=== PATIENT | male | born 1955 | race Caucasian/White ===

== ENCOUNTER 2022-10-14 23:23 | Emergency (ER) | payer OTHER, SELFPAY ==
[2022-10-14 23:25] VITALS: BP 173/91; PULSE 78; RESP 16; TEMP 36.6; O2SAT 98; BMI 29.2
[2022-10-14 23:32] VITALS: BP 171/80
[2022-10-15] MEDS: Lidocaine/Epi/Tetracaine 50 ML 1 APPLIC TOPICAL (00:04)
[2022-10-15] MEDS: Gelatin Sponge Absorbable 50cm (1) 1 EACH TOPICAL (00:05)
--- NOTE | 2022-10-15 00:33 | EDS_ITS ---
HPI History of Present Illness Chief Complaint: Laceration Informant: patient Onset/Context/Timing Onset: Today Narrative Narrative: Patient presents around 10 hours after an injury to his left ring finger, he was trying to cut something open with a box knife and accidentally cut a chunk of skin off of it. He was seen at urgent care, they put a dressing on it with some pressure but when he took the pressure dressing off it continued to bleed. He is on Brilinta. He has a history of thrombocytopenia as last time his platelets were checked it was around 70,000. He denies any other injuries. His last tetanus was 1 year ago. [facility] Medical History Aftercare following bilateral knee joint replacement surgery Coronary stent patent CVA (cerebral vascular accident) FH: CABG (coronary artery bypass surgery) Allergy/AdvReac Type Severity Reaction Status Date / Time iodine Allergy Swelling Verified 10/14/22 23:28 adhesive AdvReac Other Verified 10/14/22 23:28 verapamil AdvReac Other Verified 10/14/22 23:28 Surgical History (Updated 10/14/22 @ 23:30 by Taryn Agustin) History of shoulder surgery Social History Smoking Status: Never smoker ROS ROS ED Constitutional Constitutional ED: Denies chills or fever(s) Musculoskeletal Musculoskeletal: Reports extremity pain; Denies neck pain Integumentary Reports wounds; Denies Abrasions or rash Neurologic Neurologic: Denies paresthesias or weakness EXAM Physical Exam Const Vital Signs: 10/14/22 23:25 10/14/22 23:32 Temperature 97.9 F Temperature Source Temporal Pulse Rate 78 Respiratory Rate 16 Blood Pressure 173/91 H 171/80 H Blood Pressure Mean 118 110 Pulse Ox 98 Oxygen Delivery Method Room Air Positive well nourished and well developed General Appearance ED: well developed and NAD Neck full ROM and supple Back/Spine normal ROM and normal to inspection Extremity Extremity Narrative: Distal phalanx and part of the middle phalanx of the left ring finger epidermal avulsion with using dermis exposed, no other subcutaneous tissue noted such as bone, tendon, nerve but there is a small arteriolar bleed from the middle of this wound. Total area of epidermal avulsion is approximately 4 centimeters square. All tendon function intact. Neurovascular intact. No nail or nailbed injury. Neuro oriented x3, no focal motor deficits and no sensory deficits noted Sensorium / Orientation: alert Psych mental status grossly normal and thought process normal Skin Skin Narrative: Epidermal avulsion left ring finger see above. Rashes: no rashes MDM MDM MDM Narrative Medical decision making narrative: We placed a small amount of LET along with Gelfoam against the wound after cleansing it, in addition to then a gauze dressing, it was not wrapped tight, but it was taped snugly, there was good hemostasis. 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 Discharge Plan Triage Chief Complaint: Laceration ED Provider: Wilmer Balderas Dx/Rx/DC Orders Clinical Impression: Avulsion of skin of finger without complication, Bleeding from finger Instructions: First Aid: Bleeding, ED Skin Avulsion Stand Alone Forms: ED Work / School Excuse Primary Care Provider: Care Physician,No Primary Referrals: Care Physician,No Primary [Primary Care Provider] - Doctor,Your [Non-Staff] - 3-5 Days if not improving Activity Restrictions/Additional Instructions: Keep dressing intact for least 2 days, then change as needed. We can use the foam if there is any left against the skin along with some antibiotic ointment. Disposition Disposition: Home, Self Care
== END 2022-10-15 01:31 | disposition home or self-care (01) ==
PROVIDERS: Emergency Provider Emergency Medicine; Visit Provider Emergency Medicine
DX: S61.215A Laceration without foreign body of left ring finger without damage to nail, initial encounter (principal); W26.0XXA Contact with knife, initial encounter
CPT/HCPCS: 99282

== ENCOUNTER → 2023-06-16 | Outpatient (CLI) | payer OTHER, SELFPAY ==
--- NOTE | 2023-06-16 12:35 | RAD_ITS ---
EXAM: XR RIGHT KNEE, 3 VIEWS CLINICAL INDICATION: arthritis, TECHNIQUE: Three views of the right knee. COMPARISON: No relevant prior studies available. FINDINGS: BONES/JOINTS: There is a medial hemiarthroplasty hardware in good position. No acute fracture. No subluxation. Normal alignment. No sclerotic or destructive changes observed. SOFT TISSUES: Unremarkable. No soft tissue swelling or gas. No radiopaque foreign body. RAD/Knee 3 Views IMPRESSION: Medial arthroplasty in good position. There are no acute osseous abnormalities. Electronically Signed: Zhou Hodge MD at 0:06 EDT ,
--- NOTE | 2023-06-16 12:35 | RAD_ITS ---
EXAM: XR LEFT KNEE, 3 VIEWS CLINICAL INDICATION: arthritis, TECHNIQUE: Three views of the left knee. COMPARISON: No relevant prior studies available. FINDINGS: BONES/JOINTS: Hemiarthroplasty involving the medial compartment. Mild lateral compartment narrowing. Sushant-Stieda type calcification adjacent to the medial femoral condyle may be due to old medial collateral ligament injury. Patellofemoral joint arthrosis. No acute fracture. No subluxation. Normal alignment. No sclerotic or destructive changes observed. SOFT TISSUES: Unremarkable. No soft tissue swelling or gas. No radiopaque foreign body. RAD/Knee 3 Views IMPRESSION: 1. Hemiarthroplasty involving the medial compartment. Mild lateral compartment narrowing. 2. Sushant-Stieda type calcification adjacent to the medial femoral condyle may be due to old medial collateral ligament injury. 3. Patellofemoral joint arthrosis. Electronically Signed: Aren Donovan MD at 0:23 EDT ,
--- NOTE | 2023-06-16 12:35 | RAD_ITS ---
EXAM: XR LEFT SHOULDER COMPLETE, 2 OR MORE VIEWS CLINICAL INDICATION: arthritis, TECHNIQUE: 4 views.. COMPARISON: 4 views of the right shoulder FINDINGS: BONES/JOINTS: Postoperative change with a small orthopedic structure projecting deep in the central left humeral head-neck junction. Mild hypertrophic changes at the superior glenoid. The glenohumeral joint and rotator cuff interval appear well maintained. Cortical thickening of the left humeral shaft appears likely chronic and benign. No acute fracture. No subluxation. Normal alignment. No sclerotic or destructive changes observed. SOFT TISSUES: Unremarkable. No soft tissue swelling or gas. No radiopaque foreign body. RAD/Shoulder min 2 Views IMPRESSION: No acute findings. Postoperative change. Electronically Signed: Tuyet Brown MD at 8:23 EDT ,
--- NOTE | 2023-06-16 12:35 | RAD_ITS ---
EXAM: XR RIGHT SHOULDER COMPLETE, 2 OR MORE VIEWS CLINICAL INDICATION: arthritis, TECHNIQUE: 4 views. COMPARISON: 4 views of the left shoulder the same day. FINDINGS: BONES/JOINTS: Right humeral head prosthesis. Partially included are median sternotomy wires. No superior subluxation of the right humeral head to suggest chronic rotator cuff tear. Unremarkable right ribs and lung. No acute fracture. Preservation of the joint space. No sclerotic or destructive changes observed. SOFT TISSUES: Unremarkable. No soft tissue swelling or gas. No radiopaque foreign body. RAD/Shoulder min 2 Views IMPRESSION: Right humeral head prosthesis, well positioned. Mild cortical thickening of right humeral shaft may be due to old healed fracture. No acute findings. Electronically Signed: Tuyet Brown MD at 8:21 EDT ,
== END | disposition home or self-care (01) ==
LOC: RAD 12:29
PROVIDERS: PCP Chiropractor; Referring Provider Chiropractor; Visit Provider Chiropractor
DX: M13.80 Other specified arthritis, unspecified site (principal)
CPT/HCPCS: 73030; 73562

== ENCOUNTER → 2023-12-08 | Outpatient (CLI) | payer OTHER, SELFPAY ==
--- NOTE | 2023-12-08 09:04 | ECHOCS_ITS ---
Reason For Study: CAD/ASHD Procedure This was a 2D Doppler, Color Flow transthoracic echocardiogram. The study was technically difficult. Exam performed in department. Left Ventricle Normal LV size. Moderate concentric left ventricular hypertrophy. Left ventricular systolic function is normal. The left ventricular ejection fraction is 60 %. Stage 1 diastolic dysfunction. No regional wall motion abnormalities noted. Right Ventricle Normal RV size. Normal systolic function. Atria Normal left atrium. Normal right atrium. Bubble contrast study negative for right to left interatrial shunt. Mitral Valve Moderate focal mitral valve calcification of the anterior leaflet. Tricuspid Valve Normal tricuspid valve. Mild tricuspid valve insufficiency. Pulmonary artery systolic pressure is 33 mmHg. Aortic Valve Normal aortic valve. Pulmonic Valve Normal pulmonic valve. Great Vessels Normal aortic root. The pulmonary artery is normal size. Normal inferior vena cava. Pericardium/Pleural No pericardial effusion. Medication 22 gauge I.V. with prn adaptor inserted into right arm. Diluted definity 3ml given slow IV push to enhance endocardial definition. Performed a rapid injection of agitated mix of 9 cc saline and 1cc air to assess for atrial septal defect. MMode/2D Measurements & Calculations LVIDd: 3.8 cm IVSd: 1.4 cm Ao root diam: 3.3 cm LVIDs: 2.7 cm LVPWd: 1.3 cm RVDd: 3.1 cm FS: 29.0 % LAV(MOD-bp): 20.7 ml LVAd ap4: 20.6 cm2 SV(MOD-sp4): 28.4 ml LAV(MOD-bp) Indexed: 11.5 ml/m2 LVLd ap4: 7.0 cm LAV(MOD-sp2): 22.6 ml EDV(MOD-sp4): 48.9 ml LAV(MOD-sp4): 19.2 ml EDV(sp4-el): 51.8 ml LVAs ap4: 12.1 cm2 LVLs ap4: 6.0 cm ESV(MOD-sp4): 20.4 ml ESV(sp4-el): 20.9 ml EF(MOD-sp4): 58.2 % EF(sp4-el): 59.8 % SV(sp4-el): 31.0 ml LA A4 area: 10.4 cm2 LA dimension(2D): 3.3 cm RA A4 area: 10.6 cm2 Time Measurements MV dec time: 0.27 sec Doppler Measurements & Calculations MV E max agapito: 64.4 cm/sec Lat Peak E' Agapito: 8.5 cm/sec Med Peak E' Agapito: 7.6 cm/sec MV A max agapito: 108.1 cm/sec E/E' lat: 7.6 E/E' med: 8.5 MV E/A: 0.60 Ao V2 max: 97.3 cm/sec LV V1 max: 99.0 cm/sec PA V2 max: 80.5 cm/sec Ao max P.8 mmHg LV V1 max P.9 mmHg TR max agapito: 268.6 cm/sec TR max P.9 mmHg ECHO/Echo Complete W/ Contrast Interpretation Summary Normal LV size. Left ventricular systolic function is normal. Moderate concentric left ventricular hypertrophy. The left ventricular ejection fraction is 60 %. Moderate focal mitral valve calcification of the anterior leaflet. Pulmonary artery systolic pressure is 33 mmHg. Stage 1 diastolic dysfunction. Bubble contrast study negative for right to left interatrial shunt. Ordering Physician: Michel Paez Performed By: Jody Walton RDCS
[2023-12-08 10:18] LABS: Hematocrit 44.8 % (40-54); Hemoglobin 15.4 g/dL (13.0-16.5); Mean Corp Hgb Conc 34.4 g/dL (32-36); Mean Corpuscular Hgb 29.4 pg (27.0-32.0); Mean Corpuscular Volume 85.7 fL (80-94); POSITIVE COUNT YES; Platelet Count 98 K/mm3 (150-450); RBC Distribution Width CV 13.6 % (11.6-14.6); RBC Distribution Width SD 42.3 fl (35.1-43.9); Red Blood Count 5.23 M/mm3 (4.6-6.2); White Blood Count 4.9 K/mm3 (4.4-11.0)
[2023-12-08 10:19] LABS: Color, Urine Yellow (Yellow); Glucose, Dipstick 1000 mg/dl (Normal); Ketone-Dipstick Negative (Negative); Leukocyte Esterase-Dipstick Negative /ul (Negative); Nitrite-Dipstick Negative (Negative); Occult Blood-Urine 10 /ul (Negative); Protein-Dipstick Negative (Negative); Urine Bilirubin Dipstick Negative (Negative); Urine Clarity Clear (Clear); Urine Urobilinogen 4 mg/dl (Normal)
[2023-12-08 10:21] LABS: Scan Indicated on CBC? Y/N YES- FLAGS NOTED
[2023-12-08 10:54] LABS: ALB/GLOB Ratio 1.1 RATIO (0.9-2.4); AST(SGOT) 15 U/L (15-37); Alanine Aminotransfer ALT/SGPT 19 U/L (16-61); Albumin, Serum 3.8 g/dL (3.2-5.0); Alkaline Phosphatase 114 U/L (45-117); Anion Gap 3 (5-15); BUN 11 mg/dL (7-18); BUN/Creat Ratio 9.9 RATIO (10-20); Calcium,Total 9.2 mg/dL (8.5-10.1); Chloride 104 mmol/L (98-107); Creatinine, Serum 1.11 mg/dL (0.70-1.30); EST Glomerular Filtration Rate 70 mL/min (>60); Est Glom Filt Rate - Afr Amer 84 mL/min (>60); Globulin 3.5 g/dL (2.2-4.2); Glucose 343 mg/dL (74-106); Potassium 4.4 mmol/L (3.5-5.1); Protein, Total 7.3 g/dL (6.4-8.2); Sodium Level 136 mmol/L (136-145)
== END | disposition home or self-care (01) ==
PROVIDERS: Referring Provider Chiropractor; Visit Provider Chiropractor
DX: I25.10 Atherosclerotic heart disease of native coronary artery without angina pectoris (principal); D69.3 Immune thrombocytopenic purpura; E11.9 Type 2 diabetes mellitus without complications
CPT/HCPCS: 36415; 80053; 81002; 85027; 93306; Q9957; A4216; C8929